=== PATIENT | male | born 1995 | race Caucasian/White ===

== ENCOUNTER 2018-12-07 16:50 | Emergency (ER) | payer OTHER ==
--- NOTE | 2018-12-07 17:48 | EDPHY ---
General - History Smoking Status: Never smoked Time Seen by Provider: 12/07/18 17:40 Narrative: CLINICAL IMPRESSION: Left pointer finger laceration ASSESSMENT/PLAN: Patient is a 23-year-old male with no significant medical history who presents for evaluation of left pointer finger laceration sustained just prior to arrival. Patient is not toxic appearing, he is in no distress. Physical examination reveals 1.5 cm laceration on the palmar aspect of the left pointer distal phalanx; no nail bed involvement. There is no evidence of deep structure involvement, neurovascular compromise, foreign body, or bony involvement. The wound was not contaminated, tetanus status was up-to-date. The wound was irrigated and then repaired as discussed in the procedure note, the patient tolerated this well. Wound care instructions discussed with patient. He is well established with his PCP, they will call to schedule an appointment for wound check; he will either have his sutures removed at his PCP or by the emergency department in 7-10 days. Return precautions discussed- he will return for increased pain, signs of infection, fever, vomiting, if the wound opens or for any other concerns. Patient and family member both verbalize understanding and are in agreement with plan DIFFERENTIAL DIAGNOSIS: Includes but not limited to laceration of tendon or vascular structure, underlying fracture, laceration with retained FB ED PROCEDURES: Laceration Repair Verbal consent obtained by patient. Risks discussed, including but not limited to infection, pain, retained foreign body, need for additional repair, poor cosmetic result, tendon damage, nerve damage, poor wound healing, vascular damage. Alternatives to repair discussed. Norton protocol used to establish correct patient, procedure, equipment, desktop support technician, and site. Anesthesia obtained by local infiltration. Anesthetized with 1% lidocaine without epinephrine. Laceration location left pointer finger, palmar aspect of the distal phalanx, length 1.5 cm, depth 3 mm, Repair type simple. Patient was prepped and draped in usual sterile fashion. Hemostasis achieved with direct pressure. Wound explored through full range of motion and entire depth of wound probed and visualized with gloved finger. No suspicion for nerve damage, tendon damage, underlying fracture, vascular damage, foreign body, or contamination. Area was cleansed with Shur-Clens and irrigated with sterile saline as per protocol. No foreign body or material removed. Repair method 5.0 Prolene. Five sutures placed. Well aligned, closely approximated. wound was dressed with antibiotic ointment and sterile dressing. Patient tolerated well with no immediate complications. Wound care: Clean and dry x 24 hours, gently clean with soap and water, cover with topical antibiotic ointment/bandage. Suture/Staple removal: 7-10 Days CHIEF COMPLAINT: Left pointer finger laceration HPI: Patient is a 23-year-old male with no significant medical history who presents to the emergency department with complaints of left pointer laceration that he sustained while cutting an avocado. Patient was able to get the bleeding under control, he denies any numbness or tingling of the digit. He denies any other injury. He is right handed, as his tetanus status is up-to-date. PAST MEDICAL HISTORY: Denies Pertinent Past Surgical History: Denies Social History: Occasional alcohol, denies illicit drug use or smoking REVIEW OF SYSTEMS: All other systems negative Constitutional: No fever, no chills Musculoskeletal: No deformity, no joint pain Skin: Laceration Neurological: No sensory loss or weakness PHYSICAL EXAM: General Appearance: Alert, oriented, appropriate for age, cooperative, NAD, well hydrated, non-toxic appearing, VSS, no hypoxia. Neurological: Alert and oriented x 3 Skin: 1.5 cm laceration on the palmar, distal phalanx of the left pointer finger. No nail bed involvement, no foreign body. Upper Extremities: Intact distal pulses, Full range of motion intact, no tenderness, no ecchymosis or edema. Each interphalangeal joint of the left pointer finger was tested independently with full strength. Two point discrimination is intact distal to the laceration. Lower Extremities: Intact distal pulses, No edema, No tenderness, No cyanosis, full range of motion intact, No calf tenderness bilaterally. MEDICAL DECISION MAKING: Patient was seen independently. Secondary supervising physician at time of evaluation was Dr. Becerra, he did not evaluate this patient. Diagnosis: Left pointer finger laceration. New, requires workup Summary: See assessment and plan for summary of ED visit Clinical lab tests: Not applicable. Independent visualization of images, tracing, or specimens not applicable. Decision to obtain medical records or history from someone other than the patient: No Review / Summarize previous medical records: No Discussed patient with another provider: Yes, Dr. Becerra ([facility]) Medical Decision Making: I did not see this patient while he was in the emergency department. However his care was discussed with the PA while the patient was in the department. I agree with treatment plan and management (Jose Becerra) - Objective Vital Signs: Initial Vital Signs Temperature (C) 36.5 C 12/07/18 16:55 Heart Rate 99 12/07/18 16:55 Respiratory Rate 18 12/07/18 16:55 Blood Pressure 116/96 H 12/07/18 16:55 O2 Sat (%) 97 12/07/18 16:55 O2 Delivery Mode Room Air Allergies/Adverse Reactions: amoxicillin Allergy (Verified 12/07/18 16:58) Sulfa (Sulfonamide Antibiotics) Allergy (Verified 12/07/18 16:58) Home Medications: Medication Instructions Recorded LORazepam 12/07/18 Departure - Departure Disposition: Home, Routine, Self-Care Clinical Impression: Laceration of finger Qualifiers: Encounter type: initial encounter Finger: index finger Damage to nail status: without damage Foreign body presence: without foreign body Laterality: left Qualified Code(s): S61.211A - Laceration without foreign body of left index finger without damage to nail, initial encounter Condition: Good Instructions: Laceration (ED) Additional Instructions: DISCHARGE INSTRUCTIONS FROM YOUR DOCTOR Thank you for visiting our emergency department today. Please keep in mind that discharge from the emergency department does not mean that there is nothing wrong - it simply means that we have not identified an emergency condition that requires further evaluation or treatment in the hospital. Keep wound clean and dry for 24 hours. Then remove dressing, clean at least twice daily or when soiled with soap and water, apply antibiotic ointment and dressing. Do not soak the wound while the stitches are in place. Elevate hand as much as possible for the next 24 hours to decrease the swelling and pain. Wear the splint to immobilize the finger for the next 2-5 days to facilitate rapid healing. Anticipate suture removal in 7-10 days. Tylenol every 4-6 hours as directed as needed for pain. Do not exceed 4000 mg in 24 hours. Ibuprofen as directed every 6-8 hours with food as needed for pain. Stop for stomach upset. Do not exceed 2400 mg in 24 hours. Continue your regular medications as prescribed. Schedule a follow-up visit with your primary care physician for suture removal in 7-10 days and sooner for wound check for any concerns. As discussed the laceration was not deep enough to visualize the tendon today. It is unlikely a tendon injury is present and your tendon function is currently intact. However, if at any time, you feel a pop and have difficulty bending or straightening the finger, you should seek re-evaluation from a hand specialist urgently. Return for signs of wound infection ie: redness, swelling, drainage, foul odor, red streaks, fever, chills, pain, bleeding, if the stitches pop, if the wound opens, for numbness, tingling, weakness, discoloration of the finger, coolness of the finger, inability to move or bend the finger or for any other new, worsening or worrisome symptoms. People present with illnesses and injuries in different ways, and it is always possible that we have missed something. You may always return for re-evaluation if symptoms worsen or if they are not improving or if you develop new/different symptoms. Again, thank you for choosing our emergency department. We hope that you feel better. Referrals: RYAN TURNER [Other] - As per Instructions (Seven hundred ten days for suture removal, you may also return to the emergency department for suture removal)
[2018-12-07 18:55] VITALS: BP 115/74
== END 2018-12-07 18:55 | disposition home or self-care (01) ==
PROC: 0HQGXZZ Repair Left Hand Skin, External Approach (ICD-10-PCS; principal; 2018-12-07)
DX: S61.211A Laceration without foreign body of left index finger without damage to nail, initial encounter (principal); W26.0XXA Contact with knife, initial encounter; Y93.G1 Activity, food preparation and clean up; Y92.000 Kitchen of unspecified non-institutional (private) residence as the place of occurrence of the external cause